=== PATIENT | female | born 1960 | race Caucasian/White ===

== ENCOUNTER 2017-03-30 12:08 | Day surgery (SDC) | payer MEDICARE, MEDICAID ==
[~2017-03-30] VITALS: Ht 152.4 cm; Wt 56.2 kg
[2017-03-30] VITALS (7 sets, daily range): BP systolic 107–116; BP diastolic 75–79; PULSE 69–89; RESP 14–16; O2SAT 96–99
[~2017-03-30 12:08] MED LIST: 0.9% Sodium Chloride 1,000 ML IV SCH; Sodium Chloride LOK Flush 10 mL Syringe IV PRN; fentaNYL-PF 50 mCg/mL 2 mL Inj IVPUSH PRN
[2017-03-30] MEDS ORDERED: fentaNYL-PF 50 mCg/mL 2 mL Inj IVPUSH ONE (12:09)
[2017-03-30] MEDS ORDERED: URSO300C2 PO (12:30)
[2017-03-30] MEDS ORDERED: TRAM50TA2 PO (12:30)
[2017-03-30] MEDS ORDERED: PANT40TA2 PO (12:30)
[2017-03-30] MEDS ORDERED: CHOL500050 PO (12:30)
[2017-03-30] MEDS: 0.9% Sodium Chloride 1,000 ML IV SCH ×3 (12:40→13:21)
--- NOTE | 2017-03-30 21:40 | ENDO ---
[address] [address] ENDOSCOPY PROCEDURE PATIENT: SAM DIEGO : 1960 MR#: [id number] ADMIT: 03/30/2017 JOB ID: [id number] DATE OF SERVICE: 03/30/2017 TYPE OF OPERATION: Esophagogastroduodenoscopy, biopsy. PREOPERATIVE DIAGNOSIS(ES): Gastroesophageal reflux disease. POSTOPERATIVE DIAGNOSIS(ES): Mild nonerosive gastritis, status post biopsy. ANESTHESIA: Fentanyl 75 mcg, Versed 4 mg IV administered. COMPLICATIONS: None. BLOOD LOSS: Minimal. DESCRIPTION OF PROCEDURE: After risks and benefits explained to the patient, informed consent was obtained. After anesthesia administered, upper endoscope was inserted in mouth intubating to the esophagus, stomach, second portion of duodenum. Mucosa carefully examined. After the procedure was done, the scope withdrawn, procedure terminated. FINDINGS: Upon inspection of the esophagus, the esophagus was normal without masses, ulcers, or lesions. Z-line located at 35 cm from incisors. Upon entering the stomach, there was a mild nonerosive gastritis that was seen at the antrum. Retroflexion was normal. Duodenal bulb, first and second portion were normal. Biopsy taken, antrum and body of the stomach, and distal esophagus. IMPRESSION: Mild nonerosive gastritis. RECOMMENDATION: Await pathology results. Follow up in GI Clinic as needed.
--- NOTE | 2017-03-31 13:50 | PATH ---
SURGICAL PATHOLOGY Attending Physician:Waqar Loera MD CASE STATUS: Signed Out PATIENT NAME: SAM DIEGO PID: [id number] : 1960 DATE COLLECTED:03/30/2017 19:13 SPECIMEN: 1: Stomach, Antrum, Biopsy 2: Gastric, Biopsy 3: Esophagus, Biopsy CLINICAL HISTORY: 1). ANTRUM BIOPSY 2). GASTRIC BODY BIOPSY 3). DISTAL ESOPHAGUS BIOPSY FINAL DIAGNOSIS: 1.ANTRUM BIOPSY: FRAGMENTS OF ANTRAL MUCOSA WITH CHANGES CONSISTENT WITH REACTIVE GASTROPATHY. Negative for evidence of Helicobacter. Negative for intestinal metaplasia. Negative for dysplasia and malignancy. 2.GASTRIC BODY BIOPSY: MILD CHRONIC GASTRITIS INVOLVING FUNDIC MUCOSA. Negative for evidence of Helicobacter. Negative for intestinal metaplasia. Negative for dysplasia and malignancy. 3.DISTAL ESOPHAGUS BIOPSY: FRAGMENTS OF SQUAMOUS MUCOSA WITH MILD CHRONIC INFLAMMATION AND POSITIVE FOR SCATTERED INTRAEPITHELIAL EOSINOPHILS, CONSISTENT WITH CHANGES SECONDARY TO CHRONIC REFLUX. REACTIVE SQUAMOUS EPITHELIAL CHANGES, BUT NEGATIVE FOR DYSPLASIA AND MALIGNANCY. No gastric-type epithelium identified. ICD10 K21.0 GROSS DESCRIPTION: The specimen is received in three formalin filled containers labeled with the patient's name. 1). The specimen is sublabeled "antrum" and consists of a 0.2 x 0.2 x 0.2 CM portion of tissue which is entirely submitted in cassette 1A. 2). The specimen is sublabeled "gastric body" and consists of 2 portions of tissue which aggregate to 0.3 x 0.2 x 0.2 CM. The specimen is entirely submitted in cassette 2A. 3). The specimen is sublabeled "distal esophagus" and consists of 2 portions of tissue which aggregate to 0.2 x 0.2 x 0.2 CM. The specimen is entirely submitted in cassette 3A. 03/30/2017 [facility] MICRO DESCRIPTION: See diagnosis. ICD-9 CODES: CPT CODES: 1: 99333 2: 33178 3: 18184 Electronically Signed Out Abdoul Mccray MD [facility] Pathology [facility] [place] [address] Technical component performed at [facility], [address] [place] [address] Ave[address], [address]
== END 2017-03-30 23:59 | disposition home or self-care (01) ==
LOC: END 12:08
PROVIDERS: ATTEND Internal Medicine Gastroenterology
DX: K29.50 Unspecified chronic gastritis without bleeding (principal); K21.9 Gastro-esophageal reflux disease without esophagitis; M06.9 Rheumatoid arthritis, unspecified; K74.3 Primary biliary cirrhosis; Z86.010 Personal history of colon polyps; Z87.891 Personal history of nicotine dependence; Z86.19 Personal history of other infectious and parasitic diseases
CPT/HCPCS: 43239; 88305; G0500; J2250; J3010; J7030